=== PATIENT | female | born 1950 | race Caucasian/White ===

== ENCOUNTER 2019-02-02 11:18 | Emergency (ER) | payer BC, OTHER ==
--- OUTSIDE RECORDS SUMMARY | 2019-02-02 11:21 | XMS REPORT | Clinical Summary ---
:1950 Author Organization [facility] Address [address] [place] [address] Care Team Providers Name Role Phone Tawana Burden MD Primary Care Provider Allergies Active Allergy Reactions Severity Noted Date Comments Adhesive Hives, Itching, Rash Low 04/03/2016 Amoxicillin Trihydrate Nausea And Vomiting, Medium 04/30/2008 PCN was fine Other (See Comments) Ibuprofen Hives, Itching, Rash High 04/30/2008 Tolerates aspirin w/o allergy Tramadol Palpitations High 04/03/2016 Severe tachycardia Severe tachycardia Tramadol Hcl Other (See Comments) High 04/30/2008 tachicardia Vancomycin Other (See Comments) Medium 04/30/2008 Red zheng face Red zheng face Vancomycin Analogues 04/03/2016 Red face. Medications Medication Sig Dispensed Refills Start Date End Date Status melatonin 10 mg Take by mouth 0 Active capsule as needed. cetirizine (ZyrTEC) Take 10 mg by 0 Active 10 mg capsule mouth daily as needed. NAPROXEN SODIUM Take by 0 Active (ALEVE ORAL) mouth. CALCIUM Take by 0 Active CITRATE/VITAMIN D3 mouth. (CITRACAL + D ORAL) acetaminophen Take 500 mg 0 Active (TYLENOL) 500 MG by mouth tablet every 6 (six) hours as needed for mild pain. diphenhydrAMINE Take 25 mg by 0 Active (BENADRYL) 25 mg mouth nightly tablet as needed for itching. ranitidine (ZANTAC) Take 150 mg 0 Active 150 MG tablet by mouth 2 (two) times a day. cholecalciferol, Take 400 0 Active vitamin D3, 5,000 Units by unit tablet mouth daily as needed. OMEGA3,5,6,7,9 Take by 0 Active NO.1/SALMON OIL mouth. (COMPLETE OMEGA ORAL) pravastatin Take 1 tablet 90 tablet 1 08/13/2018 Active (PRAVACHOL) 20 MG (20 mg total) 0 tablet by mouth nightly. magnesium oxide 250 Take 250 mg 0 Active mg magnesium tablet by mouth daily. KRILL OIL ORAL Take by 0 Active mouth. dexamethasone 0 11/05/2018 Active (DECADRON) 0.1 % ophthalmic solution mirabegron Take 1 tablet 90 tablet 3 11/13/2018 Active (MYRBETRIQ) 50 mg (50 mg total) 0 tablet extended by mouth release 24 hr daily. fluticasone 2 sprays (100 16 g 11 12/03/2018 Active propionate (FLONASE) mcg total) by 50 mcg/actuation Each Nare nasal route daily. sprayIndications: Acute non-recurrent maxillary sinusitis, Wheezing albuterol (PROAIR Inhale 2 18 g 11 12/03/2018 Active HFA) 90 mcg/actuation puffs every 6 0 inhalerIndications: (six) hours Acute non-recurrent as needed for maxillary sinusitis, wheezing. Wheezing, Acute bronchitis, unspecified organism levothyroxine 1 pill daily 100 tablet 1 01/22/2019 Active (SYNTHROID, LEVOXYL) 5 days a week 50 mcg tablet and 1 1/2 tabs 2 days week( and Sunday) estradiol (ESTRACE) Apply 2 times 42.5 g 11 01/31/2019 Active 0.01 % (0.1 mg/gram) per week at 0 vaginal cream night PROAIR HFA 90 as needed. 0 02/22/2017 Discontinued mcg/actuation inhaler 9 cyanocobalamin 500 Take 500 mcg 0 Discontinued MCG tablet by mouth 9 daily. aspirin (ECOTRIN) 81 Take 81 mg by 0 Discontinued MG enteric coated mouth daily. 9 tablet levothyroxine Take 1 tablet 90 tablet 3 07/03/2017 Discontinued (SYNTHROID, LEVOXYL) (50 mcg 8 50 mcg tablet total) by mouth every morning. HYDROcodone-acetamino 0 11/06/2017 Discontinued phen (NORCO) 5-325 mg 9 per tablet mirabegron Take 1 tablet 90 tablet 3 11/13/2017 Discontinued (MYRBETRIQ) 50 mg (50 mg total) 9 tablet extended by mouth release 24 hr daily. estradiol (ESTRACE) Apply 2 times 42.5 g 11 11/13/2017 Discontinued 0.01 % (0.1 mg/gram) per week at 9 vaginal cream night MYRBETRIQ 50 mg TAKE 1 TABLET 30 tablet 0 11/25/2017 Discontinued tablet extended BY MOUTH 9 release 24 hr DAILY levothyroxine TAKE 1 90 tablet 0 07/03/2018 Discontinued (SYNTHROID, LEVOXYL) TABLET(50 9 50 mcg tablet MCG) BY MOUTH EVERY MORNING levothyroxine TAKE 1 90 tablet 0 10/16/2018 Discontinued (SYNTHROID, LEVOXYL) TABLET(50 9 50 mcg tablet MCG) BY MOUTH EVERY MORNING levothyroxine TAKE 1 90 tablet 0 10/16/2018 Discontinued (SYNTHROID, LEVOXYL) TABLET(50 9 50 mcg tablet MCG) BY MOUTH EVERY MORNING diclofenac (VOLTAREN) 0 11/05/2018 Discontinued 0.1 % ophthalmic 9 solution besifloxacin 1 drop 3 0 Discontinued (BESIVANCE) 0.6 % (three) times 9 drops,suspension a day. estradiol (ESTRACE) Apply 2 times 42.5 g 11 11/13/2018 Discontinued 0.01 % (0.1 mg/gram) per week at 9 vaginal cream night predniSONE Take 4 tabs 20 tablet 0 12/03/2018 (DELTASONE) 10 mg daily x 2 9 tabletIndications: days then 3 Acute non-recurrent tabs daily x maxillary sinusitis, 2 days then 2 Wheezing, Acute tabs daily x bronchitis, 2 days then 1 unspecified organism tab daily x 2 days then stop clarithromycin Take 1 tablet 14 tablet 0 12/03/2018 (BIAXIN) 500 MG (500 mg 9 tabletIndications: total) by Acute non-recurrent mouth 2 (two) maxillary sinusitis, times a day Wheezing, Acute for 7 days. 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 05/18/2017 Raised TSH level 03/30/2017 Neurofibroma 03/24/2016 Osteoarthritis 03/24/2016 History of lymphoma 12/03/2015 Anxiety 04/30/2008 GERD (gastroesophageal reflux disease) 04/30/2008 Hypothyroidism 06/22/2004 Encounters Date Type Specialty Care Team Description 01/31/2019 Telephone Urology Santiago Painter MA 01/24/2019 Office Visit Internal Medicine [place], Senile cataract of left eye, unspecified age-related cataract type (Primary Dx); Tawana Carr, Preoperative evaluation of a medical condition to rule out surgical contraindications (TAR required) 01/22/2019 Telephone Internal Medicine Twaana Burden MD 01/02/2019 Refill Internal Medicine Gwen Fitzpatrick MA 01/01/2019 Refill Internal Medicine Tawana Burden MD 12/19/2018 Documentation Internal Medicine [place], HOLTER MONITOR W/MATT Dawn 5-2-19 12/10/2018 Orders Only Cardiovascular LeBev MD Varicose veins of both lower extremities with inflammation (Primary Dx) 12/09/2018 Orders Only Internal Medicine [place], Varicose veins of both Tawana Carr, lower extremities with inflammation (Primary Dx) 12/03/2018 Office Visit Internal Medicine [place], Acute non-recurrent maxillary sinusitis (Primary Dx); Tawana Carr, Wheezing; Acute bronchitis, unspecified organism; Bradycardia; Intermittent palpitations; Venous stasis dermatitis of both lower extremities; Varicose veins of both lower extremities with inflammation 11/14/2018 Refill Urology Keisha Siddiqi MD 11/13/2018 Office Visit Urology Ceasar, Urinary urgency (Primary Dx); MD Prabhakar Vaginal atrophy Keisha Siddiqi MD 10/22/2018 Office Visit Internal Medicine [place], Hypothyroidism, unspecified type (Primary Dx); Tawana Carr, Pure hypercholesterolemia; Senile cataract of right eye, unspecified age-related cataract type; Preoperative evaluation to rule out surgical contraindication; Chronic diastolic heart failure (HCC); Muscle cramps; Bilateral hip pain; Acute left ankle pain 10/16/2018 Refill Internal Medicine Tawana Burden MD 09/06/2018 Office Visit Orthopedic Surgery Jose Atkinson Back pain, unspecified back location, unspecified back pain laterality, unspecified chronicity (Primary Dx); MD Hakan Pain of left thigh; Bilateral hip joint arthritis; Degenerative disc disease, lumbar 08/13/2018 Orders Only Internal Medicine Tawana Burden MD 08/12/2018 Hospital Encounter Radiology [place], Asymptomatic menopausal state; Tawana Carr, Encounter for screening for osteoporosis 08/12/2018 Hospital Encounter Radiology [place], Left hip pain Tawana Carr MD 08/12/2018 Office Visit Internal Medicine [place], Routine general medical examination at a health care facility (Primary Dx); Tawana Carr Chronic diastolic congestive heart failure (HCC); Hypothyroidism, unspecified type; IFG (impaired fasting glucose); History of parotid cancer; Gastroesophageal reflux disease with esophagitis; History of transient ischemic attack (TIA); Asymptomatic menopausal state; Encounter for screening for osteoporosis; Immunization due; Left hip pain; Muscle cramps 07/03/2018 Refill Internal Medicine Tawana Burden MD 06/09/2018 Documentation Internal Medicine [place], SCREENING LUNG CT NANI Carr, 06-06-18 MD after 02/01/2018 Immunizations Name Dates Previously Given Next Due FLUZONE HIGH-DOSE PF 05/06/2018, 04/02/2017 Pneumococcal Conjugate 13-Valent 04/02/2017 Pneumococcal Polysaccharide 08/12/2018, 07/23/2001 Tdap 03/26/2012 Zoster 12/14/2011 Family History Medical History Relation Name Comments Alcohol abuse Brother Gumaro Asthma Brother Robert Jr. COPD Brother Robert Jr. Colon polyps Brother Robert Jr. Depression Brother Robert Jr. Diabetes Brother Robert Jr. Drug abuse Brother Robert Jr. prescription painkillers Heart disease Brother Robert Jr. CHF Hyperlipidemia Brother Robert Jr. Hypertension Brother Robert Jr. Kidney disease Brother Robert Jr. kidney stones Colon polyps Brother Leopoldo Diabetes Brother Leopoldo Hypertension Brother Leopoldo Kidney disease Brother Dusty glomerulonephritis Tuberculosis Brother Dusty Cancer Father Robert Sr. Cirrhosis Father Robert Sr. GERD Father Robert Sr. Heart disease Father Robert Sr. atrial fibrillation Pancreatitis Father Robert Sr. Vision loss Father Robert Sr. cataracts Breast cancer Maternal Aunt Gale Heart disease Maternal Grandfather Edin Vision loss Maternal Grandfather Edin cataracts Alcohol abuse Maternal Grandmother Luna Cancer Maternal Grandmother Luna Colon cancer Maternal Grandmother Luna Diabetes Maternal Grandmother Luna Hearing loss Maternal Grandmother Luna totally deaf Heart disease Maternal Grandmother Luna Stroke Maternal Grandmother Luna Cancer Mother Danielle Early Mother Danielle age 43 Diabetes Paternal Grandfather Edin Alcohol abuse Sister Flakita COPD Sister Flakita Cancer Sister Flakita Depression Sister Flakita Early Sister Flakita age 62 Hearing loss Sister Flakita beginning as toddler Learning disabilities Sister Flakita thought to be hearing related Relation Name Status Comments Brother Gumaro Brother Robert Jr. Brother Leopoldo Brother Dusty Father Robert Sr. 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 Last Filed Vital Signs Vital Sign Reading Time Taken Blood Pressure 116/59 01/24/2019 11:07 AM CDT Pulse 60 01/24/2019 11:07 AM CDT Temperature 36.7 C (98.1 F) 01/24/2019 11:07 AM CDT Respiratory Rate - - Oxygen Saturation 99% 01/24/2019 11:07 AM CDT Inhaled Oxygen Concentration - - Weight 95.3 kg (210 lb) 01/24/2019 11:07 AM CDT Height 157.5 cm (5' 2") 01/24/2019 11:07 AM CDT Body Mass Index 38.41 01/24/2019 11:07 AM CDT Plan of Treatment Date Type Specialty Care Team Description 02/06/2019 Appointment Procedural Cardiology Tawana Burden MD [address] [facility] [address] [place] [address] [phone] 02/06/2019 Office Visit Cardiovascular Tawana Burden MD [address] [place] [address] [phone] Bev Delacruz MD [address] [facility] [place] [address] [phone] 04/24/2019 Office Visit Internal Medicine Tawana Burden MD [address] [facility] [place] [address] [phone] 11/12/2019 Office Visit Urology Keisha Siddiqi MD [address] [facility] [place] [address] [phone] Health Maintenance Due Date Last Done Comments BREAST CANCER SCREENING 2001 COLONOSCOPY SCREENING 2001 SHINGLES VACCINES (#1) 2001 INFLUENZA VACCINE 02/20/2019 06/05/2018, 05/06/2018, 04/02/2017 65+ PNEUMOCOCCAL VACCINE Completed 08/12/2018, 04/02/2017, 04/23/2002, Additional history exists Procedures Procedure Name Priority Date/Time Associated Diagnosis Comments POC URINALYSIS Routine 11/13/2018 Urinary urgency Results for DIPSTICK 11:19 AM CDT this procedure are in the results section. [id number] Routine 11/13/2018 Urinary urgency Results for 11:08 AM CDT this procedure are in the results section. T4, FREE Routine 10/22/2018 Hypothyroidism, Results for 11:07 AM CDT unspecified type this procedure are in the results section. THYROID STIMULATING Routine 10/22/2018 Hypothyroidism, Results for HORMONE 11:07 AM CDT unspecified type this procedure are in the results section. LIPID PANEL Routine 10/22/2018 Pure hypercholesterolemia Results for 11:07 AM CDT this procedure are in the results section. COMPREHENSIVE Routine 10/22/2018 Pure hypercholesterolemia Results for METABOLIC PANEL 11:07 AM CDT this procedure are in the results section. XR FEMUR 2 VW LEFT Routine 09/06/2018 Pain of left thigh Results for 11:52 AM QUANTOMETER OPERATOR this procedure are in the results section. XR HIP 2-3 VIEWS Routine 09/06/2018 Back pain, unspecified Results for LEFT 11:07 AM QUANTOMETER OPERATOR back location, unspecified this procedure back pain laterality, are in the unspecified chronicity results section. XR LEG LENGTH Routine 09/06/2018 Back pain, unspecified Results for EVALUATION 11:07 AM QUANTOMETER OPERATOR back location, unspecified this procedure back pain laterality, are in the unspecified chronicity results section. XR HIP 2-3 VIEWS Routine 08/12/2018 Left hip pain Results for LEFT 10:51 AM QUANTOMETER OPERATOR this procedure are in the results section. BONE DENSITY Routine 08/12/2018 Asymptomatic menopausal Results for 10:50 AM QUANTOMETER OPERATOR state this procedure Encounter for screening are in the for osteoporosis results section. MAGNESIUM LEVEL Routine 08/12/2018 Results for 8:38 AM QUANTOMETER OPERATOR this procedure are in the results section. THYROID STIMULATING Routine 08/12/2018 Routine general medical Results for HORMONE 8:38 AM QUANTOMETER OPERATOR examination at a [facility] procedure care facility are in the Hypothyroidism, results unspecified type section. T4, FREE Routine 08/12/2018 Routine general medical Results for 8:38 AM QUANTOMETER OPERATOR examination at a [facility] procedure care facility are in the Hypothyroidism, results unspecified type section. LIPID PANEL Routine 08/12/2018 Routine general medical Results for 8:38 AM QUANTOMETER OPERATOR examination at a [facility] procedure care facility are in the Hypothyroidism, results unspecified type section. History of transient ischemic attack (TIA) HEMOGLOBIN A1C Routine 08/12/2018 Routine general medical Results for 8:38 AM QUANTOMETER OPERATOR examination at a [facility] procedure care facility are in the IFG (impaired fasting results glucose) section. COMPREHENSIVE Routine 08/12/2018 Routine general medical Results for METABOLIC PANEL 8:38 AM QUANTOMETER OPERATOR examination at a [facility] procedure care facility are in the Chronic diastolic results congestive heart failure section. (HCC) IFG (impaired fasting glucose) CBC WITH PLATELET Routine 08/12/2018 Routine general medical Results for AND DIFFERENTIAL 8:38 AM QUANTOMETER OPERATOR examination at a [facility] procedure care facility are in the Chronic diastolic results congestive heart failure section. (HCC) after 02/01/2018 Results POC urinalysis dipstick (11/13/2018 11:19 AM CDT) Color urine, POC Yellow Clarity urine, POC Clear Glucose urine, POC Negative Negative Bilirubin urine, POC Negative Negative Ketones urine, POC Negative Negative Specific gravity urine, 1.020 1.005 - 1.030 POC Blood urine, POC Trace (A) Negative pH urine, POC 7.0 5.0, 5.5, 6.0, 6.5, 7.0, 7.5, 8.0, 8.5 Protein urine, POC Negative Negative Urobilinogen urine, POC <2.0 <2.0 Nitrite urine, POC Negative Negative Leukocyte esterase Trace (A) Negative urine, POC Specimen Urine POC BLADDER SCAN/PVR (11/13/2018 11:08 AM CDT) Pathologist [facility] PVR volume 124ml Specimen Urine Thyroid stimulating hormone (10/22/2018 11:07 AM CDT)Only the most recent of2 resultswithin the time period is included. Pathologist [facility] TSH 3.32 0.40 - 4.50 mIU/L [facility] [place] Specimen Blood Resulting Agency Comment Performing Organization Information: Site ID: [id number] Name: [facility] Address: [address] [place] [phone] Director: Khushboo Garsia Performing Organization Address City/[facility] Facility[facility] Phone [place] [employer] [place] [address] T4, free (10/22/2018 11:07 AM CDT)Only the most recent of2 resultswithin the time period is included. Pathologist [facility] T4, free 1.3 0.8 - 1.8 ng/dL [facility] [place] Specimen Blood Resulting Agency Comment Performing Organization Information: Site ID: [id number] Name: [facility] Address: [address] [place] [phone] Director: Khushboo Garsia Performing Organization Address City/[facility]/Zipcode Phone Number [facility] [employer] [place] [phone] Lipid panel (10/22/2018 11:07 AM CDT)Only the most recent of2 resultswithin the time period is included. [facility] Cholesterol, total 181 <200 mg/dL [facility] [employer] [place] HDL cholesterol 59 >50 mg/dL [facility] [place] Triglycerides 64 <150 mg/dL [facility] [place] LDL cholesterol 107 (H) mg/dL (calc) [facility] calculated Comment: [place] Reference range: <100 Desirable range <100 mg/dL for primary prevention; <70 mg/dL for patients with CHD or diabetic patients with > or=2 CHD risk factors. LDL-C is now calculated using the Ariadna calculation, which is a validated novel method providing better accuracy than the Friedewald equation in the estimation of LDL-C. Gil CABALLERO et al. ELYSIA. 2013;310(19): 9170-8177 (http://education.[employer]/faq/KHY191) Cholesterol/HDL 3.1 <5.0 (calc) [facility] Non-HDL cholesterol 122 <130 mg/dL [facility] Comment: (calc) [place] For patients with diabetes plus 1 major ASCVD risk factor, treating to a non-HDL-C goal of <100 mg/dL (LDL-C of <70 mg/dL) is considered a therapeutic option. Specimen Blood Resulting Agency Comment Performing Organization Information: Site ID: [id number] Name: [facility] Address: [address] [place] [phone] Director: Khushboo Garsia Performing Organization Address City/State/Zipcode Phone Number [place] [address] Comprehensive metabolic panel (10/22/2018 11:07 AM CDT)Only the most recent of2 resultswithin the time period is included. [facility] Glucose 96 65 - [address] [facility] Comment: mg/dL [place] Fasting reference interval BUN, whole blood 11 7 - 25 mg/dL [facility] [place] Creatinine 0.66 0.50 - 0.99 [facility] Comment: mg/dL [place] For patients >49 years of age, the reference limit for Creatinine is approximately 13% higher for people identified as -Yemeni. EGFR Non-Afr. 91 > OR=60 [facility] [place] mL/min/1.73m [place] 2 EGFR 106 > OR=60 [facility] Yemeni mL/min/1.73m COWAN 2 BUN/creatinine NOT APPLICABLE 6 - 22 [facility] ratio (calc) [place] Sodium 142 135 - 146 [facility] mmol/L [place] Potassium 4.5 3.5 - 5.3 [facility] mmol/L [place] Chloride 105 98 - 110 [facility] mmol/L [place] CO2 30 20 - 32 [facility] mmol/L [place] Calcium 9.4 8.6 - 10.4 [facility] mg/dL [place] Protein 6.5 6.1 - 8.1 [facility] g/dL [place] Albumin, S 4.3 3.6 - 5.1 [facility] g/dL [place] Globulin, total 2.2 1.9 - 3.7 [facility] g/dL (calc) [place] Albumin/globulin 2.0 1.0 - 2.5 [facility] ratio (calc) [place] Total bilirubin 0.4 0.2 - 1.2 [facility] mg/dL [place] Alkaline 71 33 - 130 U/L [facility] phosphatase [place] AST 25 10 - 35 U/L [facility] [place] ALT 33 (H) 6 - 29 U/L [facility] [place] Specimen Blood Resulting Agency Comment Performing Organization Information: Site ID: [id number] Name: [facility] Address: [address] [place] [phone] Director: Khushboo Garsia Performing Organization Address [facility] Phone Number [employer] [place] [phone] XR Femur 2 Vw Left (09/06/2018 11:52 AM QUANTOMETER OPERATOR) Specimen Narrative Performed At X-rays of the left femur were reviewed no obvious fractures or HM RADIANT dislocations.No obvious bony lesions are seen on plain x-ray. Performing Organization Address [facility] Phone Number [employer] [address] [place] [address] XR Hip 2-3 View Left (09/06/2018 11:07 AM QUANTOMETER OPERATOR)Only the most recent of2 resultswithin the time period is included. Specimen Narrative Performed At X-rays of bilateral hips demonstrate moderate to severe osteoarthritis of HM RADIANT bilateral hips with joint space narrowing, sclerosis, and osteophyte formation bilaterally radiographically looks worse than the right and the left Performing Organization Address [facility] Phone Number [employer] [address] [place] [address] XR Leg Length Evaluation (09/06/2018 11:07 AM QUANTOMETER OPERATOR) Specimen Narrative Performed At X-rays of bilateral lower extremities demonstrate neutral alignment with PHIL RADISUMAN some degenerative joint disease of lumbar spine Performing Organization Address City/State/Zipcode Phone Number [facility] [address] [place] [address] Bone Density (08/12/2018 10:50 AM QUANTOMETER OPERATOR) Specimen Narrative Performed At EXAMINATION:BONE DENSITY PHIL RADISUMAN CLINICAL HISTORY:Z78.0 Asymptomatic menopausal state, Z13.820 Encounter for screening for osteoporosis, screen for osteoporosis COMPARISON:None. The results of this study expressed as bone mineral density (BMD) were as follows: AP spine (L1-L4) BMD: 1.257 g/cm2 T-Score: 0.6 Z-Score: 1.4 Percent change: No prior exam. % Dual Femur (Total Mean): BMD: 0.963 g/cm2 T-Score: -0.4 Z-Score:0.4 Percent change: No prior exam. % Left femoral neck: BMD: 0.902 g/cm2 T-Score: -1.0 Z score: 0.1 Right femoral neck: BMD: 0.936 g/cm2 T-Score: -0.7 Z score: 0.3 Femur FRAX: Risk factors: None. 10 year probability of fracture: 1.Major osteoporotic: 7.8% 2.Hip: 0.6% 3.Based on femur left neck BMD Trabecular Bone Score (TBS): TBS L1-L4: 1.513,normal The 10 year probability of fracture, adjusted for FRAX: Major Osteoporotic Fracture: 6.0% Hip Fracture:0.4% Impression: 1.Bone mineral density values within normal limits with a T score value of -1.0 for the left femoral neck. Notes: *The world health organization (WHO) has classified the patient's T-score as follows: At or above (-1) as normal (-1) to (-2.5) as low (osteopenia) At or below (-2.5) as abnormally low (osteoporosis, increased fracture risk) For premenopausal women, men under the age 50 years, and children the WHO classification does not apply. In these individuals please assess bone mineral density with Z scores for each skeletal site examined. Z scores above -2.0: Within expected range for age. Z scores lower than -2.0:Low bone density for age. The TBS is derived from the texture of the DEXA image and has been shown to be related to bone microarchitecture and fracture risk. This data provides information independent of BMD value; is used as a complement to the data obtained from the DEXA analysis and the clinical examination. The TBS can assist the healthcare professional in assessment of fracture risk and in monitoring the effect of treatments on patient over time. [facility]-[id number] Procedure Note [facility], Radiology Results Incoming - 08/12/2018 11:10 AM QUANTOMETER OPERATOR EXAMINATION: BONE DENSITY CLINICAL HISTORY: Z78.0 Asymptomatic menopausal state, Z13.820 Encounter for screening for osteoporosis, screen for osteoporosis COMPARISON: None. The results of this study expressed as bone mineral density (BMD) were as follows: AP spine (L1-L4) BMD: 1.257 g/cm2 T-Score: 0.6 Z-Score: 1.4 Percent change: No prior exam. % Dual Femur (Total Mean): BMD: 0.963 g/cm2 T-Score: -0.4 Z-Score: 0.4 Percent change: No prior exam. % Left femoral neck: BMD: 0.902 g/cm2 T-Score: -1.0 Z score: 0.1 Right femoral neck: BMD: 0.936 g/cm2 T-Score: -0.7 Z score: 0.3 Femur FRAX: Risk factors: None. 10 year probability of fracture: 1. Major osteoporotic: 7.8% 2. Hip: 0.6% 3. Based on femur left neck BMD Trabecular Bone Score (TBS): TBS L1-L4: 1.513, normal The 10 year probability of fracture, adjusted for FRAX: Major Osteoporotic Fracture: 6.0% Hip Fracture: 0.4% Impression: 1. Bone mineral density values within normal limits with a T score value of - 1.0 for the left femoral neck. Notes: *The world health organization (WHO) has classified the patient's T-score as follows: At or above (-1) as normal (-1) to (-2.5) as low (osteopenia) At or below (-2.5) as abnormally low (osteoporosis, increased fracture risk) For premenopausal women, men under the age 50 years, and children the WHO classification does not apply. In these individuals please assess bone mineral density with Z scores for each skeletal site examined. Z scores above -2.0: Within expected range for age. Z scores lower than -2.0: Low bone density for age. The TBS is derived from the texture of the DEXA image and has been shown to be related to bone microarchitecture and fracture risk. This data provides information independent of BMD value; is used as a complement to the data obtained from the DEXA analysis and the clinical examination. The TBS can assist the healthcare professional in assessment of fracture risk and in monitoring the effect of treatments on patient over time. [facility]-[id number] Performing Organization Address City/State/Zipcode Phone Number [facility] [address] [place] [address] CBC with platelet and differential (08/12/2018 8:38 AM QUANTOMETER OPERATOR) WBC 5.6 3.8 - 10.8 [facility] Thousand/uL [place] RBC 4.67 3.80 - 5.10 [facility] Million/uL [place] HGB 14.4 11.7 - 15.5 [facility] g/dL [place] HCT 43.1 35.0 - 45.0 % [facility] MCV 92.3 80.0 - 100.0 fL [facility] MCH 30.8 27.0 - 33.0 pg [facility] [place] MCHC 33.4 32.0 - 36.0 [facility] g/dL [place] RDW 12.6 11.0 - 15.0 % [facility] Platelet count 258 140 - 400 [facility] Thousand/uL [place] MPV 9.6 7.5 - 12.5 fL [facility] Neutrophils, absolute 2,800 1,500 - 7,800 [facility] cells/uL [place] Lymphocytes, absolute 2,022 850 - 3,900 [facility] cells/uL [place] Monocytes, absolute 370 200 - 950 [facility] cells/uL [place] Eosinophils, absolute 358 15 - 500 [facility] cells/uL [place] Basophils, absolute 50 0 - 200 [facility] cells/uL [place] Neutrophils 50 % [facility] [place] Lymphocytes 36.1 % [facility] Monocytes 6.6 % [facility] [place] Eosinophils 6.4 % [facility] Basophils + RC 0.9 % [facility] Specimen Blood Resulting Agency Comment Performing Organization Information: Site ID: [id number] Name: [facility] Lab Address: [address] [place] [phone] Director: Khushboo Garsia Performing Organization Address [facility] Phone Number ASH [facility] [address] [phone] Magnesium level (08/12/2018 8:38 AM QUANTOMETER OPERATOR) Magnesium 2.1 1.5 - 2.5 mg/dL ASH FIGUEROA [place] Specimen Resulting Agency Comment Performing Organization Information: Site ID: [id number] Name: [facility] Address: [address] [place] [phone] Director: Khushboo Garsia Performing Organization Address [facility] Phone Number ASH [place] [address] [phone] Hemoglobin A1c (08/12/2018 8:38 AM QUANTOMETER OPERATOR) Hemoglobin A1C 5.6 <5.7 % of [place] Comment: total Hgb COWAN For the purpose of screening for the presence of diabetes: <5.7% Consistent with the absence of diabetes 5.7-6.4%Consistent with increased risk for diabetes (prediabetes) > or=6.5%Consistent with diabetes This assay result is consistent with a decreased risk of diabetes. Currently, no consensus exists regarding use of hemoglobin A1c for diagnosis of diabetes in children. According to [place] Diabetes Association (ADA) guidelines, hemoglobin A1c <7.0% represents optimal control in non- diabetic patients. Different metrics may apply to specific patient populations. Standards of Medical Care in Diabetes(ADA). Specimen Blood Resulting Agency Comment Performing Organization Information: Site ID: [id number] Name: [facility] Address: [address] [place] [phone] Director: Khushboo Garsia Performing Organization Address [facility] Phone Number ASH [place] [address] [phone] after 02/01/2018 Advance Directives Patient has advance care planning documents on file. For more information, please contact:Yair [address] [place] [address]
--- OUTSIDE RECORDS SUMMARY | 2019-02-02 11:21 | XMS REPORT | Continuity of Care Document ---
:1950 Author Organization [facility] Care Team Providers Name Role Phone [facility] Unavailable Unavailable Problems Problem Status Onset Classification Date Comments Source Date Reported Upper Diagnosis 02/22/2017 [facility] respiratory 017 infection Acute laryngitis Diagnosis 02/22/2017 [facility] 017 Otitis media Diagnosis 02/22/2017 [facility] 017 Eustachian tube Diagnosis 02/22/2017 [facility] disorder 017 Acute Diagnosis 02/22/2017 [facility] pharyngitis 017 History of Resolved Problem 10/11/2018 right Medical parotidectomy1 parotidectomy Group Hypothyroidism Resolved Problem 10/11/2018 Medical Group 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 Group Morbid obesity Active Problem 10/11/2018 Medical Group Medications Medication Details Route Status Patient Ordering Order Source Instructions Provider Date {21 See Active 03/24/ Medical (Methylpredniso Instructions, 2018 Group lone 4 MG Oral PO, Take by Tablet mouth as [Medrol]) } directed on Pack [Medrol label., # 1 Dosepak] Pack, 0 Refill(s), Pharmacy: [facility] [id number] Myrbetriq PO, Daily, 0 Active [facility] Refill(s) 2018 Group Zantac 150 150 mg, PO, Active 03/24[facility] Medical BID, 0 2018 Group Refill(s) Thyroxine Daily, 0 Active 03/24[facility] Medical Refill(s) 2018 Group 200 ACTUAT albuterol Active [facility] Albuterol 0.09 sulfate HFA 90 MG/ACTUAT mcg/actuation Metered Dose aerosol Inhaler inhaler Inhale 2 puffs every 4 hours by inhalation route as needed. Azelastine azelastine 137 Active [facility] hydrochloride mcg (0.1 %) 0.137 MG/ACTUAT nasal spray Metered Dose aerosol Marinette Nasal Marinette 2 sprays twice a day by intranasal route as directed for 7 days. Azithromycin azithromycin Active [facility] 250 MG Oral 250 mg tablet Tablet TAKE 2 TABLETS (500 MG) BY ORAL ROUTE ONCE DAILY FOR 1 DAY THEN 1 TABLET (250 MG) BY ORAL ROUTE ONCE DAILY FOR 4 DAYS benzonatate 200 benzonatate Active [facility] MG Oral Capsule 200 mg capsule Take 1 capsule 3 times a day by oral route as needed. Allergies, Adverse Reactions, Alerts Substance Category Reaction Severity Reaction Status Date Comments Source type Reported Amoxicillin Diarrhea Severe Allergy to [facility] substance 7 Vancomycin Allergy to [facility] substance 7 Motrin Hives Moderate Allergy to [facility] substance 7 ibuprofen Assertion Drug Active Medical allergy Group vancomycin Assertion Drug Active Medical allergy Group Ultram Assertion Drug Active Medical allergy Group Adhesive Assertion Allergy to Active Medical Tape substance Group Immunizations Immunization Date Given Site Status Last Comments Source Updated zoster 04/22/2016 completed [facility] influenza, 04/22/2016 completed [facility] injectable, quadrivalent pneumococcal, 04/23/2002 completed [facility] unspecified formulation Results Order Results Value Reference Date Interpretation Comments Source Name Range Influenza A negative 02/22/ [facility] 2016 Influenza B negative [facility] 2016 RESULT negative [facility] 2016 SWAB Left and [facility] LOCATION Right 2016 tonsillar pillars Pathology Reports No Data Provided for This Section Diagnostic Reports No Data Provided for This Section Consultation Notes No Data Provided for This Section Discharge Summaries No Data Provided for This Section History and Physicals No Data Provided for This Section Vital Signs Vital Sign Value Date Comments Source Height 154.94 cm 03/24/2018 Medical Group BMI Calculated 37.19 03/24/2018 Medical Group Weight 89.29 03/24/2018 Medical Group Systolic (mm Hg) 93 03/24/2018 Medical Group Diastolic (mm Hg) 68 03/24/2018 Medical Group Heart Rate 55 03/24/2018 Medical Group Respitory Rate 20 03/24/2018 Medical Group Temperature Oral (F) 97.8 F 03/24/2018 Medical Group Diastolic (mm Hg) 68 02/22/2017 [facility] Height 62 02/22/2017 [facility] Systolic (mm Hg) 110 02/22/2017 [facility] Weight 212 02/22/2017 [facility] Encounters Location Location Encounter Encounter Reason Attending ADM DC Status Source Details Type Number For Provider Date Date Visit [place] - Kaylan [id number] Kaylan 02/22 [facility] [place], [id number] Lehman /2016 [facility]: 2805 [id number] [place] [address], Ph. Outpatient [id number] [facility] 03/16 [facility] [id number] [facility] 03/24 [facility] Outpatient [id number] [facility] 03/24 03/25 [facility]2017 [facility] Procedures Procedure Code Date Perfomer Comments Source Procedure on [id number] 07/23/2001 Medical parotid gland Group H/O repair of [id number] 07/23/1995 Medical rotator cuff Group History of [id number] 07/23/1975 Medical hysterectomy Group Tonsillectomy and [facility] Adenoidectomy Hysterectomy [facility] Assessment and Plan No Data Provided for This Section Plan of Care No Data Provided for This Section Social History Social History Date Source Social History TypeResponse 03/24/2018 Medical Group Smoking Status Former smoker; Exposure to Tobacco Smoke None; Cigarette Smoking Last 365 Days No; Reg Smoking Cessation Counseling No entered on: 03/24/18 Smoking Status 02/22/2017 [facility] Former Smoker Family History No Data Provided for This Section Advance Directives No Data Provided for This Section Functional Status No Data Provided for This Section
--- OUTSIDE RECORDS SUMMARY | 2019-02-02 11:22 | XMS REPORT | Summary of Care ---
:1950 Author Organization [facility] [place] Address [address] [place] [address]- Encounter HQ Eula(FIN) [id number] Date(s): 03/24/18 - 03/24/18 [facility] [place] [address] [place] [address]- [phone] Discharge Disposition: Home or Self Care Attending Physician: Rebeca Oreilly MD Vital Signs Most recent to oldest [Reference Range]: 1 Height 154.94 cm (03/24/18 5:27 PM) Temperature Oral [96.4-99.1 DegF] 97.8 DegF (03/24/18 5:27 PM) Blood Pressure [90-140/60-90 mmHg] 93/68 mmHg (03/24/18 5:27 PM) Respiratory Rate [14-20 BRMIN] 20 BRMIN (03/24/18 5:27 PM) Peripheral Pulse Rate [60-100 bpm] 55 bpm *LOW* (03/24/18 5:27 PM) Weight 89.29 kg (03/24/18 5:27 PM) Body Mass Index 37.19 m2 (03/24/18 5:27 PM) Problem List Condition Effective Dates Status Health Status Informant History of parotidectomy(Confirmed)1 Resolved Hypothyroidism(Confirmed) Resolved Lymphoma in remission(Confirmed) Resolved Morbid obesity(Confirmed) Active 1right parotidectomy Allergies, Adverse Reactions, Alerts Substance Reaction Severity Status ibuprofen Active vancomycin Active Ultram Active Adhesive Tape Active Medications levothyroxine Daily, 0 Refill(s) Start Date: 03/24/18 Status: OrderedMedrol Dosepak 4 mg oral tablet See Instructions, PO, Take by mouth as directed on label., # 1 Pack, 0 Refill(s) , Pharmacy: [facility] [id number] Start Date: 03/24/18 Stop Date: 03/30/18 Status: OrderedMyrbetriq PO, Daily, 0 Refill(s) Start Date: 03/24/18 Status: OrderedZantac 150 150 mg, PO, BID, 0 Refill(s) Start Date: 03/24/18 Status: Ordered Results No data available for this section Immunizations No data available for this section Procedures Procedure Date Related Diagnosis Body Site Status Procedure on parotid gland 2001 Completed H/O repair of rotator cuff 1995 Completed History of hysterectomy 07/23/75 Completed Social History Social History Type Response Smoking Status Former smoker; Exposure to Tobacco Smoke None; Cigarette Smoking Last 365 Days No; Reg Smoking Cessation Counseling No entered on: 03/24/18 Assessment and Plan No data available for this section
--- OUTSIDE RECORDS SUMMARY | 2019-02-02 11:22 | XMS REPORT ---
:1950 [facility] Address [address] [place] [address] Care Team Providers Name Role Phone Garry Angelo Unavailable Unavailable Problems This patient has no known problems. Allergies, Adverse Reactions, Alerts This patient has no known allergies or adverse reactions. Medications This patient has no known medications. Results Test Description Test Time Test Comments Text Results Atomic Results Result Comments MRI ANKLE JNT LT 2018-10-14 11:56:42 CLINICAL INDICATION: [id number] Sprain of WO other ligament of left ankle, initial encounter. MODALITY: Siemens Skyra 3.0 Kamilla MRITECHNIQUE: Multiplanar multisequence MRI of the left ankle, hindfoot and midfoot was performed.IMPRESSION:1. Mild tibialis posterior tenosynovitis.2. Trace posterior and anterior subtalar joint effusions.FINDINGS:COMPARISON: noneEXTENSOR TENDONS: Tibialis anterior, extensor hallucis longus and extensor digitorum longus tendons are intact.MEDIAL TENDONS: Tibialis posterior, flexor digitorum longus and flexor hallucis longus tendons are intact. Mildly prominent fluid is present within the tibialis posterior tendon sheath, with mild adjacent soft tissue edema.LATERAL TENDONS: Peroneus longus and brevis tendons are intact.ACHILLES TENDON: Achilles tendon is intact.LIGAMENTS: The anterior and posterior talofibular ligaments are intact. Calcaneofibular ligament is intact. Anterior and posterior inferior tibiofibular ligaments are intact. Deltoid ligament is intact.SINUS TARSI: Sinus tarsi signal is normal. Cervical and talocalcaneal interosseous ligaments are intact.OSSEOUS STRUCTURES: No fractures or destructive osseous lesions are detected. Marrow signal is unremarkable. High-grade talar dome chondral lesion is not seen.MISCELLANEOUS FINDINGS: Trace posterior and anterior subtalar joint effusions are evident .
[2019-02-02] MEDS ORDERED: FENTANYL CITR 100 MCG/2 ML ONE (12:08)
[2019-02-02] MEDS ORDERED: DIAZEPAM 5 MG TABLET ONE (12:08)
--- NOTE | 2019-02-02 12:50 | RAD REPORT ---
EXAM DESCRIPTION: CTThoracic Spine W/o Cont02/02/2019 12:10 pm CLINICAL HISTORY: Back injury with Back pain with radiculopathy COMPARISON: None TECHNIQUE: Computed axial tomography of thoracic spine was obtained with coronal and sagittal recons truction. All CT scans are performed using dose optimization technique as appropriate and may include automated exposure control or mA/KV adjustment according to patient size. FINDINGS: For purposes of labeling I am assuming there are 12 thoracic ribs. This would need to be c onfirmed prior to instrumentation. Minimal compression fracture involves the inferior vertebral endplate of the T7 vertebral body. No re tropulsion of fracture fragment into the spinal canal. The posterior elements are not involved. No dislocation IMPRESSION: Minimal acute compression fracture T7 vertebral body
--- NOTE | 2019-02-02 13:10 | ER ---
Nurse's Notes [facility] Name: Luna Kirk Age: 69 yrs Sex: Female : 1950 Arrival Date: 02/02/2019 Time: 11:20 Bed 14 Private MD: Diagnosis: Wedge compression fracture of unspecified thoracic vertebra Presentation: 02/02 11:30 Presenting complaint: Patient states: Pushed a piece of heavy furniture and heard a pop rb1 in her back. Pain in the middle of her back that radiates to the both sides. Transition of care: patient was not received from another setting of care. Onset of symptoms was February 02, 2019 at 11:00. Risk Assessment: Do you want to hurt yourself or someone else? Patient reports no desire to harm self or others. Initial Sepsis Screen: Does the patient meet any 2 criteria? No. Patient's initial sepsis screen is negative. Does the patient have a suspected source of infection? No. Patient's initial sepsis screen is negative. Care prior to arrival: None. 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 - Social history:: Smoking status: Patient/guardian denies using tobacco. - Ebola Screening: : Patient negative for fever greater than or equal to 101.5 degrees Fahrenheit, and additional compatible Ebola Virus Disease symptoms. Screenin:30 Abuse screen: Denies threats or abuse. Nutritional screening: No deficits noted. rb1 Tuberculosis screening: No symptoms or risk factors identified. Fall Risk None identified. Assessment: 11:30 General: Appears uncomfortable, Behavior is calm, cooperative. Pain: Complains of pain rb1 in thoracic area Pain radiates to bilateral sides Pain currently is 8 out of 10 on a pain scale. Pain began 1100 today. Neuro: Level of Consciousness is awake, alert, obeys commands, Oriented to person, place, time, situation. Neuro: Reports Tingling to bilateral fingers. Cardiovascular: Capillary refill < 3 seconds is brisk in bilateral fingers. Respiratory: Airway is patent Respiratory effort is even, unlabored, Respiratory pattern is regular, symmetrical. GI: Reports nausea. : No signs and/or symptoms were reported regarding the genitourinary system. Derm: Skin is pink, warm \T\ dry. Musculoskeletal: Range of motion: intact in all extremities. 12:01 Reassessment: Pt. went to CT. rb1 12:30 Reassessment: Patient appears in no apparent distress at this time. Patient and/or rb1 family updated on plan of care and expected duration. Pain level reassessed. Patient is alert, oriented x 3, equal unlabored respirations, skin warm/dry/pink. 13:30 Reassessment: Patient appears in no apparent distress at this time. No changes from rb1 previously documented assessment. at bedside. Vital Signs: 11:33 BP 133 / 70; Pulse 72; Resp 18; Temp 99.1(O); Pulse Ox 100% ; Weight 90.26 kg; Height 5 mh5 ft. 2 in. (157.48 cm); Pain 8/10; 12:30 BP 114 / 65; Pulse 58; Resp 17; Temp 98.7(O); Pulse Ox 100% ; Pain 6/10; rb1 13:28 BP 119 / 82; Pulse 114; Resp 17; Temp 98.6(O); Pulse Ox 95% on R/A; mh5 13:50 BP 118 / 58; Pulse 60; Resp 19; Temp 97.9(O); Pulse Ox 100% on R/A; Pain 6/10; rb1 11:33 Body Mass Index 36.40 (90.26 kg, 157.48 cm) 5 ED Course: 11:20 Patient arrived in ED. as 11:28 [facility]ily[facility]av[facility]C [facility] snw 11:28 Brock Garcia MD is Attending Physician. snw 11:30 Arm band placed on right wrist. rb1 11:34 Patient has correct armband on for positive identification. Bed in low position. Call [facility] light in reach. Adult w/ patient. Pulse ox on. NIBP on. 11:42 Flaquita Martinez, RN is Primary Nurse. rb1 11:44 Triage completed. rb1 12:10 CT completed. Patient tolerated procedure well. Patient moved back from CT. bq 12:10 CT Thoracic Spine Wo Cont In Process Unspecified. EDMS 13:53 INCENTIVE SPIROMETRY Sent. rb1 13:53 No provider procedures requiring assistance completed. Patient did not have IV access rb1 during this emergency room visit. Administered Medications: 11:55 Drug: fentaNYL (PF) 50 mcg Route: IM; Site: right deltoid; rb1 12:15 Follow up: Response: No adverse reaction; Pain is decreased rb1 11:55 Drug: Valium 5 mg Route: PO; rb1 12:15 Follow up: Response: No adverse reaction; Pain is decreased rb1 Outcome: 13:09 Discharge ordered by . snw 13:53 Patient left the ED. rb1 13:53 Discharged to home ambulatory, with significant other. rb1 13:53 Condition: stable 13:53 Discharge instructions given to patient, Instructed on discharge instructions, follow up and referral plans. medication usage, Demonstrated understanding of instructions, follow-up care, medications, Prescriptions given X 2. Signatures: Dispatcher [employer] EDNJ Marilynn Chavira, BASS VIOL REPAIRER-C BASS VIOL REPAIRER-Csnw Shanthi Bob Toña Thomas as Flaquita Martinez, RN RN [facility] Beverly Thomas mh5
--- NOTE | 2019-02-02 13:10 | EDPHYS ---
Physician Documentation [facility] Name: Luna Kirk Age: 69 yrs Sex: Female : 1950 Arrival Date: 02/02/2019 Time: 11:20 Bed 14 Private MD: ED Physician Brock Garcia HPI: 02/02 12:07 This 69 yrs old Female presents to ER via Ambulatory with complaints of Back snw Pain. 12:07 The patient presents with pain that is acute. The symptoms are located in the mid back snw area. Onset: The symptoms/episode began/occurred suddenly, just prior to arrival. The pain radiates to the mid back area. Associated signs and symptoms: The patient has no apparent associated signs or symptoms. The problem was sustained pushing large piece of furniture and then felt a pop. Severity of symptoms: At their worst the symptoms were moderate, severe. The patient has not experienced similar symptoms in the past. It is unknown whether or not the patient has recently seen a physician. 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 - Social history:: Smoking status: Patient/guardian denies using tobacco. - Ebola Screening: : Patient negative for fever greater than or equal to 101.5 degrees Fahrenheit, and additional compatible Ebola Virus Disease symptoms. ROS: 12:07 Constitutional: Negative for fever, chills, and weight loss, Eyes: Negative for injury, snw pain, redness, and discharge, ENT: Negative for injury, pain, and discharge, Neck: Negative for injury, pain, and swelling, Cardiovascular: Negative for chest pain, palpitations, and edema, Respiratory: Negative for shortness of breath, cough, wheezing, and pleuritic chest pain, Abdomen/GI: Negative for abdominal pain, nausea, vomiting, diarrhea, and constipation, : Negative for injury, bleeding, discharge, and swelling, MS/Extremity: Negative for injury and deformity, Skin: Negative for injury, rash, and discoloration, Neuro: Negative for headache, weakness, numbness, tingling, and seizure. 12:07 Back: Positive for injury or acute deformity, decreased range of motion, pain at rest, pain with movement, radiated pain, of the mid back area. Exam: 11:56 Head/Face: Normocephalic, atraumatic. Eyes: Pupils equal round and reactive to light, snw extra-ocular motions intact. Lids and lashes normal. Conjunctiva and sclera are non-icteric and not injected. Cornea within normal limits. Periorbital areas with no swelling, redness, or edema. ENT: Nares patent. No nasal discharge, no septal abnormalities noted. Tympanic membranes are normal and external auditory canals are clear. Oropharynx with no redness, swelling, or masses, exudates, or evidence of obstruction, uvula midline. Mucous membranes moist. Neck: Trachea midline, no thyromegaly or masses palpated, and no cervical lymphadenopathy. Supple, full range of motion without nuchal rigidity, or vertebral point tenderness. No Meningismus. Chest/axilla: Normal chest wall appearance and motion. Nontender with no deformity. No lesions are appreciated. Cardiovascular: Regular rate and rhythm with a normal S1 and S2. No gallops, murmurs, or rubs. Normal PMI, no JVD. No pulse deficits. Respiratory: Lungs have equal breath sounds bilaterally, clear to auscultation and percussion. No rales, rhonchi or wheezes noted. No increased work of breathing, no retractions or nasal flaring. Abdomen/GI: Soft, non-tender, with normal bowel sounds. No distension or tympany. No guarding or rebound. No evidence of tenderness throughout. Skin: Warm, dry with normal turgor. Normal color with no rashes, no lesions, and no evidence of cellulitis. MS/ Extremity: Pulses equal, no cyanosis. Neurovascular intact. Full, normal range of motion. Neuro: Awake and alert, GCS 15, oriented to person, place, time, and situation. Cranial nerves II-XII grossly intact. Motor strength 5/5 in all extremities. Sensory grossly intact. Cerebellar exam normal. Normal gait. Psych: Awake, alert, with orientation to person, place and time. Behavior, mood, and affect are within normal limits. 11:56 Constitutional: The patient appears alert, awake, uncomfortable. 11:56 Back: pain, that is moderate, ROM is normal, normal spinal alignment noted, muscle spasm, is appreciated in the mid back area. Vital Signs: 11:33 BP 133 / 70; Pulse 72; Resp 18; Temp 99.1(O); Pulse Ox 100% ; Weight 90.26 kg; Height 5 mh5 ft. 2 in. (157.48 cm); Pain 8/10; 12:30 BP 114 / 65; Pulse 58; Resp 17; Temp 98.7(O); Pulse Ox 100% ; Pain 6/10; rb1 13:28 BP 119 / 82; Pulse 114; Resp 17; Temp 98.6(O); Pulse Ox 95% on R/A; mh5 13:50 BP 118 / 58; Pulse 60; Resp 19; Temp 97.9(O); Pulse Ox 100% on R/A; Pain 6/10; rb1 11:33 Body Mass Index 36.40 (90.26 kg, 157.48 cm) mh5 MDM: 11:29 Patient medically screened. snw 13:12 Data reviewed: vital signs, nurses notes. Data interpreted: Pulse oximetry: on room air snw is 100 %. Interpretation: normal. Counseling: I had a detailed discussion with the patient and/or guardian regarding: the historical points, exam findings, and any diagnostic results supporting the discharge/admit diagnosis, the presence of at least one elevated blood pressure reading (>120/80) during this emergency department visit, radiology results, the need for outpatient follow up, to return to the emergency department if symptoms worsen or persist or if there are any questions or concerns that arise at home. Special discussion: Based on the history and exam findings, there is no indication for further emergent testing or inpatient evaluation. I discussed with the patient/guardian the need to see the primary care provider for further evaluation of the symptoms. 02/02 11:40 Order name: CT Thoracic Spine Wo Cont; Complete Time: 13:00 snw 02/02 13:19 Order name: INCENTIVE SPIROMETRY snw Administered Medications: 11:55 Drug: fentaNYL (PF) 50 mcg Route: IM; Site: right deltoid; rb1 12:15 Follow up: Response: No adverse reaction; Pain is decreased rb1 11:55 Drug: Valium 5 mg Route: PO; rb1 12:15 Follow up: Response: No adverse reaction; Pain is decreased rb1 Disposition: 14:45 Co-signature as Attending Physician, Brock Garcia MD. rn Disposition: 02/02/19 13:09 Discharged to Home. Impression: Wedge compression fracture of unspecified thoracic vertebra. - Condition is Stable. - Discharge Instructions: Back Pain, Adult, Spinal Compression Fracture, Incentive Spirometer, Back Injury Prevention. - Prescriptions for Tylenol- Codeine #3 300-30 mg Oral Tablet - take 2 tablets by ORAL route every 6 hours As needed; 20 tablet. orphenadrine citrate 100 mg Oral Tablet Sustained Release - take 1 tablet by ORAL route 2 times per day As needed; 20 tablet. - Medication Reconciliation Form, Thank You Letter, Antibiotic Education, Prescription Opioid Use form. - Follow up: Private Physician; When: 1 - 2 days; Reason: Recheck today's complaints, Continuance of care, Re-evaluation by your physician. Follow up: Emergency Department; When: As needed; Reason: Worsening of condition. Signatures: Dispatcher [employer] EDMS Marilynn Chavira, GENERATOR OPERATOR STRAIGHT BEVEL GEAR-C GENERATOR OPERATOR STRAIGHT BEVEL GEAR-Csnw Brock Garcia MD MD rn Barber, Rebecca, RN RN rb1 Corrections: (The following items were deleted from the chart) 13:53 13:09 02/02/2019 13:09 Discharged to Home. Impression: Wedge compression fracture of rb1 unspecified thoracic vertebra. Condition is Stable. Forms are Medication Reconciliation Form, Thank You Letter, Antibiotic Education, Prescription Opioid Use. Follow up: Private Physician; When: 1 - 2 days; Reason: Recheck today's complaints, Continuance of care, Re-evaluation by your physician. Follow up: Emergency Department; When: As needed; Reason: Worsening of condition. snw
== END 2019-02-02 13:53 | disposition home or self-care (01) ==
LOC: ER 11:18
DX: S22.060A Wedge compression fracture of T7-T8 vertebra, initial encounter for closed fracture (principal); E03.9 Hypothyroidism, unspecified; X50.0XXA Overexertion from strenuous movement or load, initial encounter; Y93.89 Activity, other specified; Y92.9 Unspecified place or not applicable
CPT/HCPCS: 72128; 96372; 99284; J3010